=== PATIENT | female | born 1965 | race Caucasian/White ===

== ENCOUNTER 2024-03-29 15:11 | Emergency (ER) | payer OTHER ==
[2024-03-29 15:25] VITALS: BP 127/93; PULSE 95; RESP 17; TEMP 98.2; BMI 25.5
== END 2024-03-29 16:06 | disposition home or self-care (01) ==
LOC: FER 15:11
DX: M84.375A Stress fracture, left foot, initial encounter for fracture (principal); W22.8XXA Striking against or struck by other objects, initial encounter
CPT/HCPCS: 73630-TC-LT; 99283-25